=== PATIENT | female | born 1975 | race Caucasian/White ===

== ENCOUNTER 2018-09-07 07:23 | Emergency (ER) | payer OTHER ==
[~2018-09-07] VITALS: Ht 165.1 cm; Wt 87.1 kg
[2018-09-07 07:26] VITALS: BP 123/89
[2018-09-07] MEDS ORDERED: METOCLOPRAMIDE HCL 10 MG/2 ML VIAL. IV ONE (07:45)
[2018-09-07] MEDS ORDERED: diphenhydrAMINE 50 MG/ML VIAL IVP ONE (07:45)
[2018-09-07] MEDS ORDERED: KETOROLAC 30 MG/ML VIAL. IV ONE (07:45)
[2018-09-07] MEDS ORDERED: IV NORMAL SALINE 1,000ML 1,000 ML IV ONE (07:45)
[2018-09-07 08:04] LABS: BASO # 0.1 x10^3/uL (0.0-0.2); BASO % 1 % (0-3); EOS % 0 % (0-3); HEMATOCRIT 43.1 % (36.0-47.0); HEMOGLOBIN 14.5 g/dL (12.0-15.5); LYMPH # 2.1 x10^3/uL (1.0-4.8); LYMPH % 15 % (24-48); MEAN CORPUSCULAR HEMOGLOBIN 31 pg (25-35); MEAN CORPUSCULAR HGB CONC 34 g/dL (31-37); MEAN CORPUSCULAR VOLUME 91 fL (79-100); MONO # 0.7 x10^3/uL (0.0-1.1); MONO % 5 % (0-9); NEUT # 10.9 x10^3uL (1.8-7.7); NEUT % 79 % (31-73); PLATELET COUNT 257 x10^3/uL (140-400); RED BLOOD COUNT 4.76 x10^6/uL (3.50-5.40); WHITE BLOOD COUNT 13.8 x10^3/uL (4.0-11.0)
[2018-09-07 08:06] LABS: ALBUMIN 4.3 g/dL (3.4-5.0); CALCIUM 9.1 mg/dL (8.5-10.1); GFR 60.8; POTASSIUM 4.1 mmol/L (3.5-5.1); TOTAL BILIRUBIN 0.3 mg/dL (0.2-1.0); TOTAL PROTEIN 8.4 g/dL (6.4-8.2)
[2018-09-07] MEDS ORDERED: METO10TA81 PO (08:18)
--- NOTE | 2018-09-07 08:18 | PHYS DOC ---
Past History Past Medical History: Anxiety, IBS, Migraines, Other Past Surgical History: , Hysterectomy Alcohol Use: Rarely Drug Use: None Adult General Chief Complaint Chief Complaint: NAUSEA/VOMITING/DIARRHEA HPI HPI Patient is a 43-year-old female with a history of migraine headaches presents with intractable nausea vomiting and what she describes as a typical migraine. She states this started yesterday got worse throughout the day yesterday and then improved a little bit overnight. However she states she's been unable to keep anything down today she's continued to vomit. She states it's bilious in nature. She does describe both photophobia and phonophobia. She also admits to having a few drinks last night which she states probably didn't help her symptoms. She denies any fever or neck pain. She denies any lateralizing n eurologic weakness.[] Review of Systems Review of Systems Constitutional: Denies fever or chills [] Eyes: Denies change in visual acuity, redness, or eye pain [] HENT: Denies nasal congestion or sore throat [] Respiratory: Denies cough or shortness of breath [] Cardiovascular: No additional information not addressed in HPI [] GI: Reports nausea and vomiting[] : Denies dysuria or hematuria [] Musculoskeletal: Denies back pain or joint pain [] Integument: Denies rash or skin lesions [] Neurologic: Per history of present illness[] Endocrine: Denies polyuria or polydipsia [] All other systems were reviewed and found to be within normal limits, except as documented in this note. Current Medications Current Medications Current Medications Medications (Trade) Dose Ordered Sig/David Start Time Stop Time Status Last Admin Dose Admin Diphenhydramine HCl (Benadryl) 25 mg 1X ONCE 09/07/18 07:45 09/07/18 07:49 DC 09/07/18 07:53 25 MG Ketorolac Tromethamine (Toradol 30mg Vial) 30 mg 1X ONCE 09/07/18 07:45 09/07/18 07:49 DC 09/07/18 07:53 30 MG Metoclopramide HCl (Reglan Vial) 10 mg 1X ONCE 09/07/18 07:45 09/07/18 07:49 DC 09/07/18 07:52 10 MG Sodium Chloride 1,000 ml @ 1,000 mls/hr 1X ONCE 09/07/18 07:45 09/07/18 08:44 09/07/18 07:52 1,000 MLS/HR Allergies Allergies Allergies Coded Allergies Type Severity Reaction Last Updated Verified amoxicillin Allergy Unknown Hives 09/07/18 Yes Physical Exam Physical Exam Constitutional: Well developed, well nourished, mild to moderate distress, non- toxic appearance. [] HENT: Normocephalic, atraumatic, bilateral external ears normal, oropharynx moist, no oral exudates, nose normal. [] Eyes: PERRLA, EOMI, conjunctiva normal, no discharge. [] Neck: Normal range of motion, no tenderness, supple, no stridor. [] Cardiovascular:Heart rate regular rhythm, no murmur [] Lungs & Thorax: Bilateral breath sounds clear to auscultation [] Abdomen: Bowel sounds normal, soft, no tenderness, no masses, no pulsatile ma sses. [] Skin: Warm, dry, no erythema, no rash. [] Back: No tenderness, no CVA tenderness. [] Extremities: No tenderness, no cyanosis, no clubbing, ROM intact, no edema. [] Neurologic: Alert and oriented X 3, normal motor function, normal sensory function, no focal deficits noted. [] Psychologic: Anxious. [] Current Patient Data Vital Signs Vital Signs Date Time Temp Pulse Resp B/P (MAP) Pulse Ox O2 Delivery O2 Flow Rate FiO2 09/07/18 07:26 98.5 82 16 99 Room Air Lab Results Laboratory Tests Test 09/07/18 07:35 White Blood Count 13.8 x10^3/uL (4.0-11.0) H Red Blood Count 4.76 x10^6/uL (3.50-5.40) Hemoglobin 14.5 g/dL (12.0-15.5) Hematocrit 43.1 % (36.0-47.0) Mean Corpuscular Volume 91 fL (79-100) Mean Corpuscular Hemoglobin 31 pg (25-35) Mean Corpuscular Hemoglobin Concent 34 g/dL (31-37) Red Cell Distribution Width 14.0 % (11.5-14.5) Platelet Count 257 x10^3/uL (140-400) Neutrophils (%) (Auto) 79 % (31-73) H Lymphocytes (%) (Auto) 15 % (24-48) L Monocytes (%) (Auto) 5 % (0-9) Eosinophils (%) (Auto) 0 % (0-3) Basophils (%) (Auto) 1 % (0-3) Neutrophils # (Auto) 10.9 x10^3uL (1.8-7.7) H Lymphocytes # (Auto) 2.1 x10^3/uL (1.0-4.8) Monocytes # (Auto) 0.7 x10^3/uL (0.0-1.1) Eosinophils # (Auto) 0.0 x10^3/uL (0.0-0.7) Basophils # (Auto) 0.1 x10^3/uL (0.0-0.2) Sodium Level 142 mmol/L (136-145) Potassium Level 4.1 mmol/L (3.5-5.1) Chloride Level 103 mmol/L (98-107) Carbon Dioxide Level 29 mmol/L (21-32) Anion Gap 10 (6-14) Blood Urea Nitrogen 13 mg/dL (7-20) Creatinine 1.0 mg/dL (0.6-1.0) Estimated GFR (Cockcroft-Gault) 60.8 BUN/Creatinine Ratio 13 (6-20) Glucose Level 123 mg/dL (70-99) H Calcium Level 9.1 mg/dL (8.5-10.1) Total Bilirubin 0.3 mg/dL (0.2-1.0) Aspartate Amino Transferase (AST) 21 U/L (15-37) Alanine Aminotransferase (ALT) 25 U/L (14-59) Alkaline Phosphatase 70 U/L (46-116) Total Protein 8.4 g/dL (6.4-8.2) H Albumin 4.3 g/dL (3.4-5.0) Albumin/Globulin Ratio 1.0 (1.0-1.7) Lipase 105 U/L (73-393) EKG EKG [] Radiology/Procedures Radiology/Procedures [] Course & Med Decision Making Course & Med Decision Making Pertinent Labs and Imaging studies reviewed. (See chart for details) [ED course: Evaluation reveals a 43-year-old female with what sounds like a migraine. She was given IV fluids, Reglan, Benadryl, Toradol in the emergency department with near complete resolution of her symptoms. I will provide her some Reglan to take at home that I've instructed will help her with both headaches and her nausea. Also her know that she needs to avoid alcohol as this may be a trigger for her migraines.] Dragon Disclaimer Dragon Disclaimer This electronic medical record was generated, in whole or in part, using a voice recognition dictation system. Departure Departure: Impression: Primary Impression: Migraine headache Disposition: HOME, SELF-CARE Condition: IMPROVED Referrals: PCP,UNKNOWN (PCP) Patient Instructions: Migraine Headache Additional Instructions: Take medication as directed. Return to the emergency department with any new or concerning symptoms Scripts Metoclopramide Hcl (REGLAN) 10 Mg Tablet 10 MG PO PRN Q8HRS PRN for HEADACHE, #30 TAB 3 Refills Take 25 mg of Benadryl with each dose Prov: FRANK FRIEDMAN DO 09/07/18 Problem Qualifiers Primary Impression: Migraine headache Migraine type: unspecified Status migrainosus presence: without status migrainosus Intractability: not intractable Qualified Codes: G43.909 - Migraine, unspecified, not intractable, without status migrainosus FRANK FRIEDMAN DO Sep 07, 2018 08:18
[2018-09-07] MEDS ORDERED: ONDANSETRON PF 4 MG/2 ML VIAL. IV ONE (09:00)
== END 2018-09-07 09:17 | disposition home or self-care (01) ==
LOC: ER 07:23
DX: G43.909 Migraine, unspecified, not intractable, without status migrainosus (principal); R11.2 Nausea with vomiting, unspecified; Z88.1 Allergy status to other antibiotic agents
CPT/HCPCS: 36415; 80053; 83690; 85025; 96361; 96374; 96375; 99284; J1200; J1885; J2405; J2765; J7030